=== PATIENT | female | born 1975 | race Caucasian/White ===

== ENCOUNTER 2017-12-01 10:12 | Emergency (ER) | payer MEDICAID ==
[~2017-12-01] VITALS: Ht 175.3 cm; Wt 117.9 kg
[~2017-12-01 10:12] MED LIST: AMBIEN 5 MG TABL5 M1 PO; BACTRIM DS TAB1 EACH PO; CELEXA40 MG PO; DECONGESTANT NA15 ML NS; FIORICET 50-301 EACH PO; GEODON40 MG PO; HYDROCODON-ACE1 EAC1 PO; IBUPROFEN 600600 M1 PO; LOPRESSOR100 MG PO; ROBAXIN 750 MG750 M1 PO; VENLAFAXINE HC150 M1 PO
[2017-12-01] MEDS ORDERED: METFORMIN HCL500 MG PO (10:26)
[2017-12-01] MEDS ORDERED: NEURONTIN 300300 M1 PO (10:26)
[2017-12-01] MEDS ORDERED: LISINOPRIL-HCT1 EAC1 PO (10:27)
[2017-12-01] MEDS ORDERED: TRAZODONE HCL50 MG PO (10:27)
[2017-12-01] MEDS ORDERED: ZANAFLEX4 MG PO (10:27)
[2017-12-01] MEDS ORDERED: LAMICTAL 25 MG25 M1 PO (10:27)
[2017-12-01] MEDS ORDERED: MILK THISTLE500 MG PO (10:28)
[2017-12-01] MEDS ORDERED: VITAMIN D3400 UNIT PO (10:28)
[2017-12-01] MEDS ORDERED: CLEOCIN HCL150 MG PO (10:28)
[2017-12-01] MEDS ORDERED: CENTRUM SILVER1 EAC4 PO (10:29)
[2017-12-01] MEDS ORDERED: NOVOLOG100 UNIT/1 SUBQ (10:29)
[2017-12-01] MEDS ORDERED: LEVEMIR SUBQ (10:29)
[2017-12-01 10:51] LABS: URINE BILIRUBIN NEGATIVE (Negative); URINE BLOOD 2+ (Negative); URINE CLARITY CLEAR; URINE COLOR YELLOW; URINE GLUCOSE-RANDOM 2+ (Negative); URINE KETONES NEGATIVE (Negative); URINE LEUKOCYTES-REFLEX NEGATIVE (Negative); URINE NITRITE-REFLEX NEGATIVE (Negative); URINE PROTEIN NEGATIVE (Negative); URINE SPECIFIC GRAVITY 1.025 (1.005-1.030); URINE UROBILINOGEN 0.2 E.U./dl (0.2-1.0)
[2017-12-01 10:58] LABS: BACTERIA-REFLEX 1-9 Few /HPF (None Seen); CASTS None Seen /LPF (None Seen); CRYSTALS None Seen /LPF (None Seen); MUCUS None Seen strn/LPF (None Seen); SQUAMOUS 0-3 Few /LPF (0-3); URINE WBC-REFLEX 0-5 Rare /HPF (0-5)
[2017-12-01 11:00] LABS: ABSOLUTE EOSINOPHILS 0.1 thou/uL (0.0-0.7); ABSOLUTE LYMPHOCYTES 1.1 thou/uL (0.8-5.3); ABSOLUTE MONOCYTES 0.3 thou/uL (0.0-1.2); ABSOLUTE NEUTROPHILS 2.1 thou/uL (1.6-8.1); BASOPHILS 0.6 %; EOSINOPHILS 2.6 %; HEMATOCRIT 38.4 % (37.0-47.0); HEMOGLOBIN 13.1 gm/dL (12.0-15.0); LYMPHOCYTES 30.7 %; MCH 30.7 pg (26.0-34.0); MCHC 34.1 g/dL (28.0-37.0); MONOCYTES 9.2 %; MPV 8.9 fl. (7.2-11.1); NUCLEATED RBCS 0 /100WBC; POLYS 56.9 %; RBC 4.26 mil/uL (4.20-5.00); RDW-CV 15.1 % (10.5-14.5); WBC 3.7 thou/uL (4.0-11.0)
[2017-12-01 11:04] LABS: CALCIUM 8.6 mg/dL (8.5-10.1); CREATININE 0.8 mg/dL (0.6-1.3); POTASSIUM 3.9 mmol/L (3.5-5.1)
[2017-12-01 11:07] LABS: ALBUMIN 3.1 g/dL (3.4-5.0); TOTAL BILIRUBIN 1.4 mg/dL (<0.1-1.0); TOTAL PROTEIN 6.6 g/dL (6.4-8.2)
[2017-12-01 11:26] LABS: PLATELET COUNT* 32 thou/uL (150-400)
[2017-12-01 12:43] VITALS: BP 194/93
== END 2017-12-01 12:49 | disposition home or self-care (01) ==
LOC: M.ERS 10:12
PROVIDERS: Nurse Practitioner Family
DX: R10.9 Unspecified abdominal pain (principal)

== ENCOUNTER 2020-08-22 18:34 | Emergency (ER) | payer MEDICAID ==
[~2020-08-22] VITALS: Ht 175.3 cm; Wt 113.4 kg
[~2020-08-22 18:34] MED LIST changes: +CENTRUM SILVER1 EAC4 PO; +CLEOCIN HCL150 MG PO; +LAMICTAL 25 MG25 M1 PO; +LEVEMIR SUBQ; +LISINOPRIL-HCT1 EAC1 PO; +METFORMIN HCL500 MG PO; +MILK THISTLE500 MG PO; +NEURONTIN 300300 M1 PO; +NOVOLOG100 UNIT/1 SUBQ; +TRAZODONE HCL50 MG PO; +VITAMIN D3400 UNIT PO; +ZANAFLEX4 MG PO
[2020-08-22] MEDS ORDERED: CARVEDILOL12.5 MG PO (18:50)
[2020-08-22 19:08] LABS: URINE BILIRUBIN NEGATIVE (Negative); URINE BLOOD 3+ (Negative); URINE CLARITY CLEAR; URINE COLOR YELLOW; URINE GLUCOSE-RANDOM NEGATIVE (Negative); URINE KETONES NEGATIVE (Negative); URINE LEUKOCYTES-REFLEX 1+ (Negative); URINE NITRITE-REFLEX NEGATIVE (Negative); URINE PROTEIN TRACE (Negative); URINE SPECIFIC GRAVITY >= 1.030 (1.005-1.030)
[2020-08-22 19:08] LABS: ABSOLUTE EOSINOPHILS 0.2 thou/uL (0.0-0.7); ABSOLUTE LYMPHOCYTES 1.4 thou/uL (0.8-5.3); ABSOLUTE MONOCYTES 0.4 thou/uL (0.0-1.2); ABSOLUTE NEUTROPHILS 2.3 thou/uL (1.6-8.1); BASOPHILS 0.7 %; EOSINOPHILS 5.2 %; HEMATOCRIT 37.7 % (37.0-47.0); HEMOGLOBIN 12.8 gm/dL (12.0-15.0); LYMPHOCYTES 32.4 %; MCH 30.9 pg (26.0-34.0); MCHC 33.9 g/dL (28.0-37.0); MCV 91.1 fL (80.0-100.0); MONOCYTES 9.1 %; MPV 8.5 fl. (7.2-11.1); NUCLEATED RBCS 0 /100WBC; POLYS 52.6 %; RBC 4.13 mil/uL (4.20-5.00); RDW-CV 17.1 % (10.5-14.5); WBC 4.4 thou/uL (4.0-11.0)
[2020-08-22 19:14] LABS: CALCIUM 8.7 mg/dL (8.5-10.1); CREATININE 0.7 mg/dL (0.6-1.3); POTASSIUM 3.7 mmol/L (3.5-5.1)
[2020-08-22 19:16] LABS: PLATELET COUNT* 39 thou/uL (150-400)
[2020-08-22 19:16] LABS: SQUAMOUS >10 Many /LPF (0-3)
[2020-08-22 19:17] LABS: BACTERIA-REFLEX 1-9 Few /HPF (None Seen); CASTS None Seen /LPF (None Seen); CRYSTALS None Seen /LPF (None Seen); MUCUS None Seen strn/LPF (None Seen); URINE RBC 3-10 Few /HPF (0-2); URINE WBC-REFLEX 6-15 Few /HPF (0-5)
[2020-08-22 19:18] LABS: TOTAL BILIRUBIN 1.8 mg/dL (<0.1-1.0); TOTAL PROTEIN 6.2 g/dL (6.4-8.2)
[2020-08-22] MEDS ORDERED: KEFLEX500 M1 PO (21:11)
[2020-08-22 21:27] VITALS: BP 131/70
== END 2020-08-22 21:28 | disposition home or self-care (01) ==
LOC: M.ERS 18:34
PROVIDERS: Physician Assistant
DX: N39.0 Urinary tract infection, site not specified (principal); R18.8 Other ascites; K74.60 Unspecified cirrhosis of liver; D69.6 Thrombocytopenia, unspecified; E11.9 Type 2 diabetes mellitus without complications; Z90.89 Acquired absence of other organs; Z98.890 Other specified postprocedural states; Z79.4 Long term (current) use of insulin